=== PATIENT | male | born 1985 | race African-American/Black ===

== ENCOUNTER 2017-04-26 08:13 | Emergency (ER) | payer SELFPAY ==
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
== END 2017-04-26 11:40 | disposition home or self-care (01) ==
LOC: CED 08:13
DX: S13.4XXA Sprain of ligaments of cervical spine, initial encounter (principal); V49.40XA Driver injured in collision with unspecified motor vehicles in traffic accident, initial encounter; Y92.488 Other paved roadways as the place of occurrence of the external cause
CPT/HCPCS: 70450; 72125; 73060; 82947; 99284